=== PATIENT | female | born 1995 | race Caucasian/White ===

== ENCOUNTER 2017-08-10 11:46 | Emergency (ER) | payer OTHER ==
[2017-08-10] MEDS: SOD CHLORIDE 0.9% 1,000 ML IV ×2 (12:58→13:32)
[2017-08-10] MEDS: ONDANSETRON 4 MG INJ IV (12:58)
[2017-08-10 13:01] LABS: URINE BLOOD (Dip) POC Trace-intact (NEGATIVE); URINE GLUCOSE (Dip) POC Negative (NEGATIVE); URINE KETONES (Dip) POC 4+ (NEGATIVE); URINE LEUKOCYTE EST (Dip) POC 2+ (NEGATIVE); URINE NITRITE (Dip) POC Negative (NEGATIVE); URINE TOTAL PROTEIN POC 1+ (NEGATIVE)
[2017-08-10] MEDS: CEFTRIAXONE 1 GM/50 ML (PMX) 50 ML IVPB (13:32)
== END 2017-08-10 14:36 | disposition home or self-care (01) ==
LOC: FTE 11:46
DX: O21.0 Mild hyperemesis gravidarum (principal); O23.40 Unspecified infection of urinary tract in pregnancy, unspecified trimester; Z3A.00 Weeks of gestation of pregnancy not specified
CPT/HCPCS: 81003; 81025; 87086; 96374; 96375; 99284-25

== ENCOUNTER 2017-08-18 20:19 | Emergency (ER) | payer OTHER ==
[2017-08-18 22:27] LABS: URINE BLOOD (Dip) POC 2+ (NEGATIVE); URINE GLUCOSE (Dip) POC Negative (NEGATIVE); URINE KETONES (Dip) POC Negative (NEGATIVE); URINE LEUKOCYTE EST (Dip) POC 2+ (NEGATIVE); URINE NITRITE (Dip) POC Negative (NEGATIVE); URINE TOTAL PROTEIN POC 3+ (NEGATIVE)
[2017-08-18 22:32] LABS: ADD MAN DIFF? NO
[2017-08-18 22:43] LABS: WHITE BLOOD COUNT 14.4 10^3/ul (4.8-10.8)
[2017-08-18 22:43] LABS: BASOPHIL # 0.1 10^3/ul (0.0-0.1); BASOPHILS % 0.3 % (0.0-2.0); EOSINOPHILS % 0.1 % (0.0-7.0); HEMATOCRIT 31.8 % (37.0-47.0); HEMOGLOBIN 11.2 g/dl (12.0-16.0); LYMPHOCYTES # 1.5 10^3/ul (0.8-2.9); LYMPHOCYTES % 10.7 % (15.0-51.0); MEAN CORPUSCULAR HEMOGLOBIN 31.2 pg (29.0-33.0); MEAN CORPUSCULAR HGB CONC 35.2 g/dl (32.0-37.0); MEAN CORPUSCULAR VOLUME 88.6 fl (82.0-101.0); MONOCYTES % 7.2 % (0.0-11.0); NEUTROPHIL # 11.7 10^3/ul (1.6-7.5); NEUTROPHILS % 81.3 % (39.0-77.0); PLATELET COUNT 225 10^3/UL (140-415); RED BLOOD COUNT 3.59 10^6/ul (4.20-5.40)
[2017-08-18 23:24] LABS: ADD UMIC YES; UR AMORPHOUS CRYSTAL FEW /HPF (NONE SEEN); UR ASCORBIC ACID NEGATIVE (NEGATIVE); UR BACTERIA FEW /HPF (NONE SEEN); UR BILIRUBIN (Dip) NEGATIVE (NEGATIVE); UR BLOOD (Dip) 2+ mg/dL (NEGATIVE); UR CLARITY TURBID (CLEAR); UR COLOR YELLOW (YELLOW); UR GLUCOSE (Dip) NEGATIVE (NEGATIVE); UR KETONES (Dip) NEGATIVE (NEGATIVE); UR LEUKOCYTE ESTERASE (Dip) 3+ Leu/ul (NEGATIVE); UR MUCUS MANY /HPF (NONE SEEN); UR NITRITE (Dip) NEGATIVE (NEGATIVE); UR NONSQUAMOUS EPITHELIAL CELL 4 /HPF (NONE SEEN); UR RBC 88 /HPF (0-5); UR SPECIFIC GRAVITY (Dip) 1.018 (1.003-1.030); UR SQUAMOUS EPITHELIAL CELL FEW /HPF (FEW); UR TOTAL PROTEIN (Dip) 2+ mg/dl (NEGATIVE); UR UROBILINOGEN (Dip) NEGATIVE (NEGATIVE); UR WBC > 182 /HPF (0-5)
== END 2017-08-19 01:00 | disposition home or self-care (01) ==
LOC: FTE 08-19 01:00
DX: O23.12 Infections of bladder in pregnancy, second trimester (principal); M54.5 Low back pain; Z3A.16 16 weeks gestation of pregnancy
CPT/HCPCS: 36415; 76775; 81001; 81003; 84702; 85025; 86900; 86901; 87086; 99284-25

== ENCOUNTER 2017-12-13 01:29 | Emergency (ER) | payer OTHER ==
[2017-12-13] MEDS ORDERED: LIDOCAINE 1% (MDV) 10 ML INJ INJ (01:56)
[2017-12-13] MEDS: LIDOCAINE 1% (MPF) 5 ML VIAL INJ (02:30)
== END 2017-12-13 03:27 | disposition home or self-care (01) ==
LOC: FTE 01:29
DX: L60.0 Ingrowing nail (principal)
CPT/HCPCS: 11765; 99283-25

== ENCOUNTER 2018-01-14 12:09 | Outpatient (CLI) | payer OTHER | END 2018-01-14 15:15 | disposition home or self-care (01) | LOC: OBT 12:09 → L-D 12:09 → OBT 15:15 | DX: O36.8130 Decreased fetal movements, third trimester, not applicable or unspecified (principal); O41.03X0 Oligohydramnios, third trimester, not applicable or unspecified; Z3A.37 37 weeks gestation of pregnancy | CPT/HCPCS: 76818 ==

== ENCOUNTER 2018-01-17 11:51 | Inpatient (IN) | payer OTHER ==
[2018-01-17] MEDS ORDERED: ACETAMINOPHEN 325 MG TAB PO (18:00)
[2018-01-17] MEDS: LACTATED RINGER'S 1,000 ML IV (19:19)
[2018-01-18] MEDS: LACTATED RINGER'S 1,000 ML IV ×3 (00:54→14:30)
[2018-01-18] MEDS: PRENATAL VITAMIN PO (09:11)
== END 2018-01-18 20:00 | disposition home or self-care (01) | DRG 833 ==
LOC: OBT 11:51 → L-D 11:51 → OBT 16:15 → L-D 16:15 → PP1 17:40
DX: O41.03X0 Oligohydramnios, third trimester, not applicable or unspecified (principal); Z3A.39 39 weeks gestation of pregnancy
CPT/HCPCS: 76815; 76816; 76818

== ENCOUNTER 2018-01-20 10:57 | Inpatient (IN) | payer OTHER ==
[2018-01-20 12:36] LABS: ADD UMIC YES; UR ASCORBIC ACID NEGATIVE (NEGATIVE); UR BILIRUBIN (Dip) NEGATIVE (NEGATIVE); UR BLOOD (Dip) 1+ mg/dL (NEGATIVE); UR CLARITY SLIGHTLY CLOUDY (CLEAR); UR COLOR YELLOW (YELLOW); UR GLUCOSE (Dip) NEGATIVE (NEGATIVE); UR KETONES (Dip) NEGATIVE (NEGATIVE); UR LEUKOCYTE ESTERASE (Dip) 1+ Leu/ul (NEGATIVE); UR NITRITE (Dip) NEGATIVE (NEGATIVE); UR RBC 11 /HPF (0-5); UR TOTAL PROTEIN (Dip) NEGATIVE (NEGATIVE); UR UROBILINOGEN (Dip) NEGATIVE (NEGATIVE); UR WBC 55 /HPF (0-5)
[2018-01-20 13:45] LABS: RUPTURE FETAL MEMBRANES NEGATIVE (NEGATIVE)
[2018-01-20] MEDS ORDERED: LIDOCAINE 1% (MPF) 30 ML INJ INJ (16:00)
[2018-01-20] MEDS ORDERED: METHYLERGONOVINE 0.2 MG INJ IM (16:00)
[2018-01-20] MEDS ORDERED: MISOPROSTOL 200 MCG TAB PR (16:00)
[2018-01-20] MEDS ORDERED: CARBOPROST 250 MCG INJ IM (16:00)
[2018-01-20] MEDS ORDERED: OXYTOCIN 30 UNITS/LR 500 ML IV (16:00)
[2018-01-20 16:20] LABS: WHITE BLOOD COUNT 10.7 10^3/ul (4.8-10.8)
[2018-01-20 16:20] LABS: ABNORMAL IP MESSAGE 1; HEMATOCRIT 29.8 % (37.0-47.0); HEMOGLOBIN 10.2 g/dl (12.0-16.0); MEAN CORPUSCULAR HEMOGLOBIN 30.6 pg (29.0-33.0); MEAN CORPUSCULAR HGB CONC 34.2 g/dl (32.0-37.0); MEAN CORPUSCULAR VOLUME 89.5 fl (82.0-101.0); NUCLEATED RED BLOOD CELLS% 0.2 /100WBC (0.0-0.0); PLATELET COUNT 101 10^3/UL (140-415); RED BLOOD COUNT 3.33 10^6/ul (4.20-5.40); RED CELL DISTRIBUTION WIDTH 12.8 % (11.5-14.5)
[2018-01-20 16:24] LABS: POSITIVE DIFF @See below
[2018-01-20 16:25] LABS: ADD MAN DIFF? YES
[2018-01-20 16:39] LABS: INR 0.87; PROTIME 11.9 Sec (11.9-14.9); PT RATIO 0.9
[2018-01-20 16:40] LABS: PARTIAL THROMBOPLASTIN TIME 30.9 Sec (23.0-35.0)
[2018-01-20 16:51] LABS: BAND NEUTROPHILS #M 0.3 10^3/ul (0.0-0.6); BAND NEUTROPHILS % (M) 3 % (0-4); BASOPHIL #M 0.1 10^3/ul (0.0-0.0); BASOPHILS % (M) 1 % (0-2); EOSINOPHILS % (M) 2 % (0-7); GIANT THROMBO% (M) 5 % (0-0); LYMPHOCYTES #M 1.1 10^3/ul (0.8-2.9); LYMPHOCYTES % (M) 11 % (15-51); MONOCYTE #M 0.5 10^3/ul (0.3-0.9); MONOCYTES % (M) 5 % (0-11); PLATELET ESTIMATE DECREASED; POLYCHROMASIA 1+ (0-0); SEG NEUT #M 8.4 10^3/ul (1.6-7.5); SEGMENTED NEUTROPHILS (M) % 78 % (39-77); SMUDGE%M 13 % (0-0)
[2018-01-20] MEDS: LACTATED RINGER'S 1,000 ML IV* ×2 (18:23→18:40)
[2018-01-20] MEDS: DINOPROSTONE 10 MG VAG SUPP VAG (18:24)
[2018-01-20 21:52] LABS: RAPID PLASMA REAGIN NONREACTIVE (NR)
[2018-01-20 22:03] LABS: HEPATITIS B SURFACE ANTIGEN NEGATIVE (NEGATIVE)
[2018-01-21] MEDS: BUTORPHANOL 2 MG INJ IV ×2 (01:25→04:56)
[2018-01-21] MEDS: LACTATED RINGER'S 1,000 ML IV* ×5 (01:44→22:48)
[2018-01-21] MEDS ORDERED: NALOXONE (0.4 MG/ML) INJ IV (11:00)
[2018-01-21] MEDS ORDERED: FENTAnyl 2MCG/ML-ROPIV 0.2% 100 ML BAG EPI (11:00)
[2018-01-21] MEDS: OXYTOCIN 30 UNITS/LR 500 ML IV ×3 (12:36→21:06)
[2018-01-21] MEDS: ONDANSETRON 4 MG INJ IV (15:48)
[2018-01-21] MEDS ORDERED: AMPICILLIN 1 GM/NS (PMX) 50 ML IVPB (17:00)
[2018-01-21] MEDS ORDERED: ACETAMINOPHEN 325 MG TAB (17:00)
[2018-01-21] MEDS: ACETAMINOPHEN 325 MG TAB PO (17:07)
[2018-01-21] MEDS: AMPICILLIN 2 GM/NS (PMX) 100 ML IVPB (17:07)
[2018-01-21] MEDS ORDERED: LIDOCAINE 1.5%/EPI MPF (SDV) 30 ML VIAL (17:13)
[2018-01-21] MEDS: GENTAMICIN 120 MG/NS (PMX) 100 ML IVPB (17:56)
[2018-01-21] MEDS: MINERAL OIL LIGHT 10 ML VIAL TOP (20:40)
[2018-01-21] MEDS: AMPICILLIN 1 GM/NS (PMX) 50 ML IVPB (21:00)
[2018-01-21] MEDS: LIDOCAINE 0.5% (SDV) 50 ML INJ INJ (21:17)
[2018-01-21] MEDS: LIDOCAINE 0.5% (SDV) 50 ML INJ INFIL (21:18)
[2018-01-21] MEDS: IBUPROFEN 600 MG TAB PO (21:27)
[2018-01-21] MEDS ORDERED: DIBUCAINE 1% 30 GM OINT PR (23:00)
[2018-01-21] MEDS ORDERED: BENZOCAINE 20% 56 ML SPRAY TOP (23:00)
[2018-01-21] MEDS ORDERED: CARBOPROST 250 MCG INJ IM (23:00)
[2018-01-21] MEDS ORDERED: MISOPROSTOL 200 MCG TAB PR (23:00)
[2018-01-21] MEDS ORDERED: METHYLERGONOVINE 0.2 MG INJ IM (23:00)
[2018-01-21] MEDS ORDERED: WITCH HAZEL/GLYCERIN PAD PR (23:00)
[2018-01-21] MEDS ORDERED: HYDROCODONE/APAP (5/325) TAB PO ×2 (23:00)
[2018-01-21] MEDS ORDERED: ZOLPIDEM 5 MG TAB PO (23:00)
[2018-01-22] MEDS: AMPICILLIN/SULB 3 GM/NS (PMX) 100 ML IVPB ×5 (00:31→23:42)
[2018-01-22] MEDS: OXYTOCIN 30 UNITS/LR 500 ML IV (00:37)
[2018-01-22] MEDS ORDERED: GENTAMICIN 80 MG/NS (PMX) 50 ML IVPB (01:00)
[2018-01-22] MEDS: IBUPROFEN 600 MG TAB PO ×5 (05:40→23:42)
[2018-01-22 08:34] LABS: ADD MAN DIFF? NO
[2018-01-22 08:40] LABS: WHITE BLOOD COUNT 22.5 10^3/ul (4.8-10.8)
[2018-01-22 08:40] LABS: ABNORMAL IP MESSAGE 1; BASOPHIL # 0.1 10^3/ul (0.0-0.1); BASOPHILS % 0.3 % (0.0-2.0); HEMATOCRIT 26.7 % (37.0-47.0); HEMOGLOBIN 9.1 g/dl (12.0-16.0); LYMPHOCYTES # 1.9 10^3/ul (0.8-2.9); LYMPHOCYTES % 8.3 % (15.0-51.0); MEAN CORPUSCULAR HEMOGLOBIN 31.4 pg (29.0-33.0); MEAN CORPUSCULAR HGB CONC 34.1 g/dl (32.0-37.0); MEAN CORPUSCULAR VOLUME 92.1 fl (82.0-101.0); MONOCYTE # 1.9 10^3/ul (0.3-0.9); MONOCYTES % 8.2 % (0.0-11.0); NEUTROPHIL # 18.5 10^3/ul (1.6-7.5); NEUTROPHILS % 82.4 % (39.0-77.0); PLATELET COUNT 87 10^3/UL (140-415); RED CELL DISTRIBUTION WIDTH 13.4 % (11.5-14.5)
[2018-01-22 08:53] LABS: POSITIVE DIFF @See below
[2018-01-22] MEDS: MAGNESIUM HYDROXIDE 30ML CUP PO ×2 (09:00→21:07)
[2018-01-22] MEDS: SENNA/DOCUSATE NA (8.6MG/50MG) TAB PO ×2 (09:22→21:07)
[2018-01-22] MEDS: LACTATED RINGER'S 1,000 ML IV* (12:26)
[2018-01-22] MEDS: LANOLIN 7 GM TUBE TOP (18:32)
[2018-01-23] MEDS: AMPICILLIN/SULB 3 GM/NS (PMX) 100 ML IVPB ×2 (05:50→12:00)
[2018-01-23] MEDS: IBUPROFEN 600 MG TAB PO ×2 (05:50→12:00)
[2018-01-23 08:45] LABS: ADD MAN DIFF? NO
[2018-01-23 08:48] LABS: ABNORMAL IP MESSAGE 1; BASOPHILS % 0.3 % (0.0-2.0); EOSINOPHILS # 0.1 10^3/ul (0.0-0.5); EOSINOPHILS % 0.4 % (0.0-7.0); HEMATOCRIT 27.4 % (37.0-47.0); HEMOGLOBIN 9.1 g/dl (12.0-16.0); LYMPHOCYTES # 2.4 10^3/ul (0.8-2.9); LYMPHOCYTES % 16.3 % (15.0-51.0); MEAN CORPUSCULAR HEMOGLOBIN 30.3 pg (29.0-33.0); MEAN CORPUSCULAR HGB CONC 33.2 g/dl (32.0-37.0); MEAN CORPUSCULAR VOLUME 91.3 fl (82.0-101.0); MONOCYTE # 0.9 10^3/ul (0.3-0.9); MONOCYTES % 6.1 % (0.0-11.0); NEUTROPHIL # 11.2 10^3/ul (1.6-7.5); NEUTROPHILS % 75.6 % (39.0-77.0); PLATELET COUNT 100 10^3/UL (140-415); RED CELL DISTRIBUTION WIDTH 13.5 % (11.5-14.5)
[2018-01-23 08:48] LABS: WHITE BLOOD COUNT 14.8 10^3/ul (4.8-10.8)
[2018-01-23 08:57] LABS: POSITIVE DIFF @See below
[2018-01-23] MEDS: DIPHTH/TET/ACEL PERTUSS (ADULT) 0.5 ML VIAL IM* (09:00)
[2018-01-23] MEDS: MAGNESIUM HYDROXIDE 30ML CUP PO (09:00)
[2018-01-23] MEDS: MEASLES,MUMPS,RUBELLA VACCINE INJ SC* (09:00)
[2018-01-23] MEDS: SENNA/DOCUSATE NA (8.6MG/50MG) TAB PO (09:00)
[2018-01-23] MEDS: VARICELLA VACCINE LIVE/PF 1,350 UNIT/0.5 ML ML SC* (09:00)
[2018-01-23] MEDS ORDERED: AMOXICILLIN/CLAV 500 MG TAB PO ×2 (20:00)
== END 2018-01-23 15:31 | disposition home or self-care (01) | DRG 807 ==
LOC: OBT 10:57 → L-D 01-21 21:19 → PP1 01-21 22:39 → OBT 14:13 → L-D 14:13
PROC: 10E0XZZ Delivery of Products of Conception, External Approach (ICD-10-PCS; principal; 2018-01-21)
PROC: 0UQKXZZ Repair Hymen, External Approach (ICD-10-PCS; 2018-01-21)
PROC: 3E033VJ Introduction of Other Hormone into Peripheral Vein, Percutaneous Approach (ICD-10-PCS; 2018-01-21)
DX: O70.0 First degree perineal laceration during delivery (principal); Z37.0 Single live birth; O69.81X0 Labor and delivery complicated by cord around neck, without compression, not applicable or unspecified; Z3A.38 38 weeks gestation of pregnancy
CPT/HCPCS: 62319; 76815; 76818; 81001; 84112; 85025; 85610; 85730; 86592; 86850; 86900; 86901; 87040; 87086; 87340; 88307; 90715; 90716; 99464

== ENCOUNTER 2018-01-26 19:24 | Emergency (ER) | payer OTHER | END 2018-01-26 23:29 | disposition home or self-care (01) | LOC: FTE 19:24 | DX: D17.22 Benign lipomatous neoplasm of skin and subcutaneous tissue of left arm (principal); R40.2412 Glasgow coma scale score 13-15, at arrival to emergency department | CPT/HCPCS: 76536; 99284-25 ==